=== PATIENT | male | born 1970 | race Two or more races ===

== ENCOUNTER 2020-02-18 15:59 | Emergency (ER) | payer MEDICAID, SELFPAY ==
[~2020-02-18] VITALS: Ht 177.8 cm; Wt 101.6 kg
[2020-02-18 16:45] LABS: BASOPHILS # (AUTO) 0.04 x10^3/uL (0-0.1); BASOPHILS % (AUTO) 1 % (0-1); EOSINOPHILS # (AUTO) 0.16 x10^3/uL (0-0.4); EOSINOPHILS % (AUTO) 3 % (1-7); LYMPHOCYTES # (AUTO) 3.03 x10^3/uL (1-3.4); LYMPHOCYTES % (AUTO) 46 % (22-44); MD NO; MEAN CORPUSCULAR HEMOGLOBIN 33.1 pg (27.5-34.5); MEAN CORPUSCULAR HGB CONC 33.8 g/dL (33.2-36.2); MEAN CORPUSCULAR VOLUME 97.9 fL (81-97); MONOCYTES # (AUTO) 0.51 x10^3/uL (0.2-0.8); MONOCYTES % (AUTO) 8 % (2-9); NEUTROPHILS # (AUTO) 2.81 x10^3/uL (1.8-6.8); NEUTROPHILS % (AUTO) 43 % (42-75); PLATELET COUNT 177 x10^3/uL (130-400); RED BLOOD COUNT 4.67 x10^6/uL (4.38-5.82); RED CELL DISTRIBUTION WIDTH 13.6 % (9.4-14.8)
[2020-02-18 16:57] LABS: ALBUMIN 4.1 g/dL (3.4-5.0); ANION GAP 5 mmol/L (5-15); CALCIUM 8.8 mg/dL (8.5-10.1); CHLORIDE 109 mmol/L (98-107); CREATININE 1.06 mg/dL (0.7-1.3)
[2020-02-18] MEDS ORDERED: KETOROLAC 30 MG/1 ML IM ONE (17:00)
[2020-02-18 17:05] LABS: MICROSCOPIC NOT IND
[2020-02-18] MEDS ORDERED: KETOROLAC 30 MG/1 ML ONE (17:15)
[2020-02-18 18:50] VITALS: BP 119/68
== END 2020-02-18 18:55 | disposition home or self-care (01) ==
LOC: ED 18:50
DX: I86.1 Scrotal varices (principal)
CPT/HCPCS: 36415; 76870; 80048; 81003; 82040; 85025; 96372; 99284; J1885